=== PATIENT | female | born 1955 | race Two or more races ===

== ENCOUNTER → 2024-05-03 | Outpatient (BNVA) | payer MEDICARE, MEDICAID, SELFPAY | END | disposition home or self-care (01) | PROVIDERS: PCP Physician Assistant; Referring Provider Physician Assistant; Visit Provider Nurse Practitioner Family | DX: J20.9 Acute bronchitis, unspecified (principal) | CPT/HCPCS: 99213; A9270 ==

== ENCOUNTER 2024-11-29 20:17 | Emergency (ER) | payer MEDICARE, MEDICAID, SELFPAY ==
[2024-11-29 20:21] VITALS: BMI 34.3
--- NOTE | 2024-11-29 22:26 | PD.EDEYE ---
ED Eye Problem RME/HPI General Chief complaint: Eye Problems Stated complaint: BLILAT EYE IRRITAED SWOLLEN PAINFUL Time Seen by Provider: 11/29/24 21:48 Arrival date/time: 11/29/24 20:17 RME / HPI RME / HPI Narrative: 68-year-old female presents to the ED with a complaint of bilateral eye redness, crusting, and yellow discharge since yesterday. She woke up with crusting of her eyes this morning. She denies any visual changes, recent illness with fever, chills, cough, upper respiratory complaints. Related Data Previous Rx's ?Medication ?Instructions ?Recorded albuterol sulfate 90 mcg/actuation 2 inh inhalation Q6H PRN shortness 05/03/24 aerosol inhaler of breath or wheezing #6.7 grams erythromycin 5 mg/gram (0.5 %) eye 0.5 inch ophthalmic (eye) TID 7 11/29/24 ointment days #3.5 grams olopatadine 0.2 % eye drops 1 drp ophthalmic (eye) QDAY PRN 11/29/24 (Pataday Once Daily Relief) itching or irritation #2.5 mL Allergies Allergy/AdvReac Type Severity Reaction Status Date / Time No Known Allergies Allergy Verified 11/29/24 20:20 Review of Systems Review of Systems Systems Reviewed: All systems reviewed, normal except as documented Past Medical History Past Medical History CARDIAC: Positive Hypertension; Negative Congestive Heart Failure RESPIRATORY: Positive Asthma; Negative Chronic Obstructive Pulmonary Disease (COPD) GENITOURINARY: Negative Renal Disease REPRODUCTIVE: Positive Breast Cancer MUSCULOSKELETAL: Positive Musculoskeletal Disorders (onychiomycosis) ENDOCRINE: Negative Diabetes Mellitus Type 1 or Diabetes Mellitus Type 2 OTHER HISTORY: Positive Breast Cancer Surgical History SURGICAL: Positive Lumpectomy Social History SMOKING STATUS: Never smoker ED Exam Narrative Physical exam: A&O, afebrile and non-toxic appearing 68-year-old female, no acute distress. Lung are clear, RRR, pupils are PERRL, EOMs intact. Bilateral conjunctival mild erythema with crusting noted. Abdomen is non-distended. Moves all extremities well. Course Course Course Narrative: Erythromycin ophthalmic ointment, half-inch ribbon placed in bilateral eyes prior to discharge. Quality Measures none Orders Category Date Time Status Erythromycin Op Oint 0.5% Med 11/29/24 22:21 Once 1 gm BOTH EYES X1 ONE Eye MDM Narrative MDM Narrative:: Symptoms, exam and diagnostic studies are consistent with: Bilateral conjunctivitis Patient was discharged home in stable condition, with a prescription for Patient/family advised to follow-up with their PCP in 24-48 hours. Encouraged to return to the ED for any new or worsening symptoms. Patient data External records reviewed:: None Clinical information provided by:: patient and family Social determinants that could affect healthcare access:: none Patient has the following chronic illnesses:: Arthritis How is presenting disease/condition affected by chronic disease/condition?: uneffected by Evaluation data The following diagnostics were reviewed and interpreted by me:: other (specify) (N/A) Lab and/or radiology exams considered but not ordered:: N/A Interpretation Summary: N/A Medications / Prescriptions Medications or Prescriptions considered but not ordered:: N/A Medication administrations:: Medication Administration History Erythromycin (Erythromycin Op Oint 0.5% 1 Gm Packet) 1 gm BOTH EYES X1 ONE Stop: 11/29/24 22:22 As noted above Consultations Consultation(s) initiated? (list below): No Diagnosis Eye Problem Differential Diagnosis: conjunctivitis, acute iritis and hyphema Most likely diagnosis given after review of the tests above:: Bilateral conjunctivitis Admission Indicated Admission indicated?: not indicated Explain why admission is indicated or not indicated:: Patient is stable for discharge Admission Request Was there a request for admission?: No Admission Attestation Admission request attestation: N/A Disposition Plan Disposition Plan: Discharge Discharge Attestation Discharge Attestation: The patient and all family members were given an opportunity to ask questions and understood the discharge instructions. Discharge instructions specifically effects, indications for sooner follow up or return to the emergency department, and the expected course of current diagnosis. Patient condition: Stable Discharge Plan Plan Patient Disposition: HOME (Self Care) Discharge Disposition comment: Stable Prescriptions/Referrals Prescriptions/Med Rec: New erythromycin 5 mg/gram (0.5 %) ointment 0.5 inch ophthalmic (eye) TID 7 Days Qty: 3.5 0RF olopatadine [Pataday Once Daily Relief] 0.2 % drops 1 drp ophthalmic (eye) QDAY PRN (Reason: itching or irritation) Qty: 2.5 0RF No Action albuterol sulfate 90 mcg/actuation HFA aerosol inhaler 2 inh inhalation Q6H PRN (Reason: shortness of breath or wheezing) Qty: 6.7 0RF Rx Instructions: Directions in Egyptian Referrals: Osman Madsen MD [Primary Care Provider] - In 1 week Problem List Clinical Impression: Bacterial conjunctivitis Patient/Caregiver Discharge Instructions Education Materials: ED Conjunctivitis, Nonspecific Additional Instructions: Use the eyedrops as prescribed. Follow-up with your primary care physician in 24 to 48 hours. Return to the ED for any new or worsening symptoms. Print Language: Egyptian Stand Alone Forms: Mary Award Info., Patient Portal Info Letter PA/PRODUCT SAFETY TEST ENGINEER Supervising Physician PA/PRODUCT SAFETY TEST ENGINEER Supervising Physician: Dr Hyde
[2024-11-29] MEDS: Erythromycin Op Oint 0.5% 1 GM PACKET BOTH EYES (23:10)
[2024-11-29 23:11] VITALS: BP 145/67; PULSE 86; RESP 86; TEMP 36.7; O2SAT 96
== END 2024-11-29 23:13 | disposition home or self-care (01) ==
PROVIDERS: Emergency Provider Emergency Medicine; PCP Family Medicine
DX: H10.89 Other conjunctivitis (principal)
CPT/HCPCS: 99282; A9270

== ENCOUNTER 2024-12-16 19:31 | Emergency (ER) | payer MEDICARE, MEDICAID, SELFPAY ==
[2024-12-16 19:32] VITALS: BMI 26.4
[2024-12-16 20:07] VITALS: BP 133/72; PULSE 81; RESP 18; TEMP 36.5; O2SAT 96
--- NOTE | 2024-12-16 20:26 | XR_ITS ---
Examination: AP chest single view TECHNIQUE: AP portable upright chest single view Date and time: December 16, 2024 2019 hours INDICATIONS: Shortness of breath weakness today. FINDINGS: Stable granuloma left lower lobe compared with December 03, 2017 Normal heart size Mild vascular congestion. Suspicious for parenchymal disease in the left upper lobe IMPRESSION: Recommend AP lordotic chest follow-up to exclude parenchymal disease in the left upper lobe
--- NOTE | 2024-12-16 20:26 | EKG_ITS ---
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
--- NOTE | 2024-12-16 20:26 | XR_ITS ---
EXAMINATION: Ankle, right 3 views . Technique: Ankle AP, oblique, lateral 3 views Date and time of exam: December 16, 2024, 2100 hours. INDICATIONS: Patient fell today with injury to the ankle, ankle pain. FINDINGS: Severe osteopenia. No ankle dislocation No acute fracture IMPRESSION: No acute fracture Given the severe osteopenia, recommend short-term follow-up ankle films as clinically warranted
--- NOTE | 2024-12-16 20:26 | XR_ITS ---
Examination: CT brain head without contrast. 2-D sagittal coronal reconstructions Date and time of exam:December 16, 2024, 2052 hours INDICATIONS: Headaches the last 3 weeks CTDI: vol (mGy):42.9 DLP: (mGycm):827 Technique: Multiple CT axial sections of the brain have been obtained, 5 mm slice thickness. Contrast has not been administered. 2-D sagittal, coronal reconstructions have been obtained Low dose protocols were performed. One or more of the following dose reduction techniques were used; automated exposure control, adjustment of the mA and/or KV according to patient size, use of iterative reconstruction technique. Findings: Left frontal convexity mass, 2.8 x 2.0 x 2.7 cm with prominent surrounding edema Significant mass effect from this tumor, shift of the frontal horns to the right at least 9 mm The ventricles are not enlarged Fourth ventricle midline No tonsillar herniation Cranial vault intact with prominent sinusitis IMPRESSION: Left frontal convexity mass 2.8 x 2.0 x 2.7 cm most consistent with meningioma with significant surrounding edema and significant mass effect as above
--- NOTE | 2024-12-16 20:27 | XR_ITS ---
Examination: CT cervical spine without contrast 2-D sagittal reconstructions 2-D coronal reconstructions 3-D reconstructions. Exam date and time:December 16, 2024, 2050 hours INDICATIONS: Patient fell today with injury to the neck, neck pain CTDI:vol (mGy) 12.7 DLP: (mGycm) 280 Technique: Multiple 2 mm axial sections of the cervical spine have been obtained. The coronal and sagittal reconstructions have been obtained. 3-D reconstructions have been obtained. Low dose protocols were performed. One or more of the following dose reduction techniques were used; automated exposure control, adjustment of the mA and/or KV according to patient size, use of iterative reconstruction technique. Findings: Axial sections demonstrate intact base of the skull. C1 exhibit satisfactory relationship to the odontoid. No acute cervical vertebral body fracture seen. Alignment posterior spinous processes satisfactory. Impression: No acute cervical fracture.
--- NOTE | 2024-12-16 21:17 | PD.EDFALL ---
ED Fall Injury RME/HPI General Chief Complaint: Fall Stated Complaint: HEADACHE/ RT ANKLE SWELLING AFTER FALL Time Seen by Provider: 12/16/24 20:26 Arrival date/time: 12/16/24 19:31 69F with history of HTN, asthma, and breast cancer presents to ED with daughter for R ankle swelling after she fell after she lost her balance going into car. Separately, patient has had 3 weeks of GARCÍA and abnormal behavior. Limitations: no limitations and altered mental status Related Data Previous Rx's ?Medication ?Instructions ?Recorded albuterol sulfate 90 mcg/actuation 2 inh inhalation Q6H PRN shortness 05/03/24 aerosol inhaler of breath or wheezing #6.7 grams olopatadine 0.2 % eye drops 1 drp ophthalmic (eye) QDAY PRN 11/29/24 (Pataday Once Daily Relief) itching or irritation #2.5 mL Allergies Allergy/AdvReac Type Severity Reaction Status Date / Time No Known Allergies Allergy Verified 11/29/24 20:20 Review of Systems Review of Systems Systems Reviewed: All systems reviewed, normal except as documented Constitutional Constitutional: Reports system reviewed and no additional complaints, except as documented, Reports as per HPI, Denies fever(s) and Reports headache(s) ENT Ears, Nose, Mouth, and Throat: Denies disequilibrium and Reports headache(s) Cardiovascular Cardiovascular: Reports system reviewed and no additional complaints, except as documented, Denies chest pain and Denies dyspnea Respiratory Respiratory: Reports system reviewed and no additional complaints, except as documented, Denies cough and Denies dyspnea Gastrointestinal Gastrointestinal: Reports system reviewed and no additional complaints, except as documented, Denies abdominal pain, Denies nausea and Denies vomiting Musculoskeletal Musculoskeletal: Reports as per HPI and Reports arthralgias Neurologic Neurologic: Reports system reviewed and no additional complaints, except as documented, Reports as per HPI, Reports behavioral changes, Denies confusion, Denies disequilibrium and Reports headache(s) Psychiatric Psychiatric: Reports behavioral changes and Denies confusion Past Medical History Past Medical History CARDIAC: Positive Hypertension; Negative Congestive Heart Failure RESPIRATORY: Positive Asthma; Negative Chronic Obstructive Pulmonary Disease (COPD) GENITOURINARY: Negative Renal Disease REPRODUCTIVE: Positive Breast Cancer MUSCULOSKELETAL: Positive Musculoskeletal Disorders (onychiomycosis) ENDOCRINE: Negative Diabetes Mellitus Type 1 or Diabetes Mellitus Type 2 OTHER HISTORY: Positive Breast Cancer Surgical History SURGICAL: Positive Lumpectomy Social History SMOKING STATUS: Never smoker ED Exam General Limitations: Present no limitations and altered mental status General appearance: Present in no apparent distress Head Head exam: Present atraumatic Eye Eye exam: Present normal appearance, PERRL and EOMI ENT ENT exam: Present normal exam, normal oropharynx and mucous membranes moist Neck Neck exam: Present normal inspection, full ROM and trachea midline Chest Chest inspection: Present normal inspection and symmetric chest wall rise Respiratory Respiratory exam: Present normal lung sounds bilaterally Cardiovascular Cardiovascular exam: Present regular rate, normal rhythm and normal heart sounds Abdominal Exam Abdominal exam: Present soft and normal bowel sounds Extremities Exam Extremities exam: Present normal inspection and full ROM Back Exam Back exam: Present normal inspection and full ROM Neurological Exam Neurological exam: Present alert, oriented X3 and CN II-XII intact Psychiatric Psychiatric exam: Present normal affect and normal mood Skin Skin exam: Present warm, dry, intact and normal color Course Quality Measures none Orders Category Date Time Status EKG (ED ONLY) *Do not use* NOW Care 12/16/24 20:27 Completed Head of Bed Elevation NOW Care 12/17/24 01:07 Completed Insert IV NOW Care 12/16/24 21:41 Completed NPO NEEDED Care 12/17/24 01:01 Completed NPO NOW Care 12/17/24 01:01 Completed Notify provider NEEDED Care 12/17/24 01:07 Completed Diet NPO (NOW) Diet 12/17/24 01:[address] cervical spine wo con Stat Exams 12/16/24 20:[address] head/brain wo con Stat Exams 12/16/24 20:26 Completed EKG (ED Only) Stat Exams 12/16/24 20:26 Draft XR ankle comp RT min 3V Stat Exams 12/16/24 20:26 Completed XR chest 1V portable Stat Exams 12/16/24 20:26 Completed CBC Stat Lab 12/16/24 20:34 Completed CMP [Comprehensive Metabolic Panel] Stat Lab 12/16/24 20:34 Completed INR [Prothrombin Time with INR] Stat Lab 12/16/24 20:34 Completed PTT [Partial Thromboplastin Time] Stat Lab 12/16/24 20:34 Completed Troponin I Stat Lab 12/16/24 20:34 Completed Urinalysis, C/S if Indicated Stat Lab 12/16/24 20:12 Completed Urine Culture Stat Lab 12/16/24 20:12 Received Dexamethasone Inj [Decadron Inj] Med 12/16/24 21:46 Discontinued 10 mg IVP X1 ONE SODIUM CHLORIDE 3%(Hypertonic) [Hypertonic Saline 3%] Med 12/17/24 01:15 Discontinued 250 ml IV 750 mls/hr SODIUM CHLORIDE 3%(Hypertonic) [Hypertonic Saline 3%] Med 12/17/24 01:15 Discontinued 500 ml IV 30 mls/hr cefTRIAXone/D5w 1gm IV premix [Rocephin/D5w 1gm IV Med 12/16/24 22:45 Discontinued premix] 1 gm in 50 ml IV X1 Vital Signs Vital signs: Vital Signs Temperature 97.7 F 12/16/24 20:07 Pulse Rate 81 12/16/24 20:07 Respiratory Rate 18 12/16/24 20:07 Blood Pressure 133/72 H 12/16/24 20:07 Pulse Oximetry (%) 96 12/16/24 20:07 Oxygen Delivery Method Room Air 12/16/24 20:07 O2 at 96% on RA and WNLs Fall MDM Narrative MDM Narrative:: 69F with history of HTN, asthma, and breast cancer presents to ED with daughter for R ankle swelling after she fell after she lost her balance going into car. Separately, patient has had 3 weeks of GARCÍA and abnormal behavior. Physical exam reveals no obvious RLE swelling or tenderness. No gross head trauma. Normal pupil response and EOM. CN II-XII grossly intact. Normal WOB. Patient is able to walk with a shuffling gait. Patient is afebrile, alert, but appears confused. Patient follows most commands. EKG is NSR. CXR unremarkable. Trop normal. CMP unremarkable with sodium of 142. CT reveals large meningioma with mass effect. XR unremarkable. UA suggests UTI. Spoke to Sumaya GARCIA at [facility], who recommends giving 250 mL bolus of 3% saline and continuous 30 mL/hr infusion afterward. She also recommends 30% head of bed elevation and to keep systolic BP <160. If greater than, give nicardipine. Mannitol is to be used as a last reserve. She recommends not giving steroids, but it had already been giving. She states that is acceptable. Patient transferred via [facility] without issue. Patient data External records reviewed:: [facility] previous records Clinical information provided by:: patient Social determinants that could affect healthcare access:: none Patient has the following chronic illnesses:: HTN, asthma, and breast cancer How is presenting disease/condition affected by chronic disease/condition?: exacerbated by Evaluation data The following diagnostics were reviewed and interpreted by me:: lab results, radiology exam(s) and EKG tracing(s) Lab and/or radiology exams considered but not ordered:: ordered Interpretation Summary: above Medications / Prescriptions Medications or Prescriptions considered but not ordered:: ordered Medication administrations:: Medication Administration History Discontinued Medications Dexamethasone Sodium Phosphate (Dexamethasone Sod Phos Inj 10 Mg/Ml Vial) 10 mg IVP X1 ONE Stop: 12/16/24 21:47 Last Admin: 12/16/24 23:49 Dose: 10 mg Documented By: ERIN Ceftriaxone Sodium/Dextrose (Rocephin/D5w 1gm Iv Premix) 1 gm in 50 mls @ 100 mls/hr IV X1 ONE Stop: 12/16/24 23:14 Last Infusion: 12/17/24 00:36 Dose: Infused Documented By: Admin: 12/16/24 23:50 Dose: 100 mls/hr Documented By: ERIN Sodium Chloride (Hypertonic Saline 3%) 500 mls @ 30 mls/hr IV .[id number] DINH Stop: 12/17/24 17:54 Sodium Chloride (Hypertonic Saline 3%) 250 mls @ 750 mls/hr IV .Q20M ONE Stop: 12/17/24 01:34 Last Admin: 12/17/24 01:22 Dose: 750 mls/hr Documented By: ERIN above Consultations Consultation(s) initiated? (list below): Yes Diagnosis Fall Differential Diagnosis: syncope, dislocation of shoulder region, fracture of wrist, compression fracture, concussion with loss of consciousness and concussion without loss of consciousness Most likely diagnosis given after review of the tests above:: brain mass, UTI Admission Indicated Admission indicated?: not indicated Admission Request Was there a request for admission?: No Disposition Plan Disposition Plan: Transfer Discharge Plan Plan Patient Disposition: [facility] [place] [facility] Being Transferred to: [facility] Service Needed for Transfer: Neurosurgery Prescriptions/Referrals Prescriptions/Med Rec: No Action albuterol sulfate 90 mcg/actuation HFA aerosol inhaler 2 inh inhalation Q6H PRN (Reason: shortness of breath or wheezing) Qty: 6.7 0RF Rx Instructions: Directions in Bolivian olopatadine [Pataday Once Daily Relief] 0.2 % drops 1 drp ophthalmic (eye) QDAY PRN (Reason: itching or irritation) Qty: 2.5 0RF Referrals: Temporary Provider,ED [Physician] - In 1 week Problem List Clinical Impression: Brain mass, UTI (urinary tract infection) Patient/Caregiver Discharge Instructions Print Language: Icelandic Stand Alone Forms: Mary Award Info., Patient Portal Info Letter PA/BRANCH OR DEPARTMENT CHIEF LIBRARIAN Supervising Physician PA/BRANCH OR DEPARTMENT CHIEF LIBRARIAN Supervising Physician: Dr. Hyde
[2024-12-16 21:41] LABS: Basophils # (Auto) 0.1 Thou/mm3 (0.0-0.2); Basophils % (Auto) 1 % (0-2.5); Eosinophils # (Auto) 0.2 Thou/mm3 (0.0-0.5); Eosinophils % (Auto) 2 % (0-10); Hematocrit 30.0 % (36.0-46.0); Hemoglobin 9.9 g/dL (12.0-16.0); Immature Granulocytes Auto 1.02 Thou/mm3 (0.00-0.00); Lymphocytes # (Auto) 3.2 Thou/mm3 (1.0-4.8); Lymphocytes % (Auto) 28 % (10-50); Mean Corpuscular HGB Conc 33.0 g/dl (31.0-37.0); Mean Corpuscular Hemoglobin 32.9 pg (25.0-35.0); Mean Corpuscular Volume 100 fL (80-100); Monocytes # (Auto) 1.0 Thou/mm3 (0.0-0.8); Monocytes % (Auto) 8 % (0-12); Neutrophils # (Auto) 5.8 Thou/mm3 (1.8-7.7); Neutrophils % (Auto) 51 % (37-80); Nucleated Red Blood Cell # 0.18 Thou/mm3 (0.00-0.00); Nucleated Red Blood Cell % 2 /100 WBC (0); Platelet Count 217 Thou/mm3 (140-440); RDW Standard Deviation 54.6 fL (36.4-46.3); Red Blood Count 3.01 Miln/mm3 (4.00-5.20); White Blood Count 11.4 Thou/mm3 (3.6-11.0)
[2024-12-16 22:01] LABS: INR 1.1 (0.9-1.3); Partial Thromboplastin Time 29.1 Seconds (22.0-36.0); Prothrombin Time 12.4 Seconds (9.0-12.2)
[2024-12-16 22:03] LABS: Alanine Aminotransferase 8 U/L (10-49); Albumin, Serum 5.0 gm/dL (3.4-4.8); Albumin/Globulin Ratio 2.6 (1.2-2.2); Alkaline Phosphatase 59 U/L (46-116); Anion Gap 12 (7-16); Aspartate Amino Transferase 20 U/L (0-34); BUN/Creatinine Ratio 28 Ratio (12-20); Bilirubin,Total 0.5 mg/dL (0.3-1.2); Blood Urea Nitrogen 22 mg/dL (9-23); Calcium 10.9 mg/dL (8.3-10.6); Calcium (Corrected) 10.9 mg/dL (8.5-10.1); Carbon Dioxide 23.9 mMol/L (20.0-31.0); Chloride 106 mMol/L (98-107); Creatinine (Component) 0.8 mg/dL (0.6-1.3); Estimated Creatinine Clearance 54.3 mL/min (>60); Globulin 1.9 gm/dL (2.3-3.5); Glucose 116 mg/dL (74-106); Osmolality,Calculated 287 (275-295); Potassium 3.8 mMol/L (3.4-5.1); Sodium 142 mMol/L (136-145); Total Protein 6.9 gm/dL (5.7-8.2); Troponin I < 0.002 ng/mL (0.0-0.045); eGFR > 60 See Note
--- NOTE | 2024-12-16 22:24 | PC.NURSE ---
Transfer request per Cameron Pope contacted- their neuro surgeon doesn't treat tumors. They are declining case at this time. Will initiate transfer to [facility]
[2024-12-16 22:29] LABS: Collection Type, Urine Clean Catch
[2024-12-16 22:39] LABS: Bacteria,Urine 4+; Bilirubin,Urine Negative (Negative); Blood,Urine 1+ (Negative); Calcium Oxalate Crystals,Urine 4+; Clarity,Urine Turbid (Clear/Hazy); Color,Urine Yellow (Lt Yel-Yel); Glucose, Urine Negative (Negative); Ketones,Urine Negative (Negative); Leukocyte Esterase,Urine Positive (Negative); Nitrite,Urine Positive (Negative); PH,Urine 6.0 (5.0-7.0); Protein,Urine 2+ (Neg - Trace); RBC,Urine 10 /hpf (0-3); Specific Gravity,Urine 1.030 (1.001-1.035); Squamous Epithelial Cell,Urine 7 /hpf (0-5); Urobilinogen,Urine Negative mg/dL (0.0-1.0); WBC,Urine 233 /hpf (0-5)
[2024-12-16 22:40] LABS: Culture Indicated,Urine Yes
[2024-12-16] MEDS: DEXAMETHASONE SOD PHOS INJ 10 MG/ML VIAL IVP (23:49)
[2024-12-16] MEDS: cefTRIAXone/D5w 1gm IV premix 1 GM/50 ML BAG IV (23:50)
[2024-12-16 23:55] VITALS: BP 153/76; PULSE 74; RESP 20; TEMP 37.2; O2SAT 98
--- NOTE | 2024-12-17 00:54 | PC.NURSE ---
[facility] ACCEPTS ED TO ED for Neuro critical care. Accepting PA is Todd NURSE to NURSE Report to .
--- NOTE | 2024-12-17 01:22 | PC.NURSE ---
[facility] Accepts grounding at 0200
[2024-12-17 01:28] VITALS: BP 136/89; PULSE 75; RESP 15; TEMP 36.6; O2SAT 98
--- NOTE | 2024-12-17 02:14 | PC.NURSE ---
Called report [facility] for report spoke to Jamie BARNES.
== END 2024-12-17 02:08 | disposition short-term general hospital (02) ==
PROVIDERS: Physician Assistant; Emergency Provider Emergency Medicine; PCP Physician Assistant
DX: G93.89 Other specified disorders of brain (principal); N39.0 Urinary tract infection, site not specified; I10 Essential (primary) hypertension; J45.909 Unspecified asthma, uncomplicated; R22.41 Localized swelling, mass and lump, right lower limb; Z85.3 Personal history of malignant neoplasm of breast; W19.XXXA Unspecified fall, initial encounter
CPT/HCPCS: 36415; 70450; 71045; 72125; 73610; 80053; 81001; 84484; 85025; 85610; 85730; 87077; 87086; 87186; 93005; 99283; J0696; J1100; J7131